=== PATIENT | female | born 1980 | race Caucasian/White ===

== ENCOUNTER 2021-01-14 19:18 | Inpatient (IN) | payer OTHER, MEDICAID, SELFPAY ==
[2021-01-14 19:24] VITALS: BP 120/80; PULSE 98; RESP 15; TEMP 36.8; O2SAT 100; BMI 24.5
[2021-01-14] MEDS: trazodone 50 mg Tablet PO (21:38)
[2021-01-14] MEDS: hyDROXYzine 25 mg Capsule 50 MG PO (21:38)
[2021-01-14 22:00] VITALS: BP 120/80; PULSE 98; RESP 15; TEMP 36.8; O2SAT 100
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
[2021-01-15 06:00] VITALS: BP 93/62; PULSE 73; RESP 18; TEMP 36.4; O2SAT 96
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
[2021-01-15 14:00] VITALS: BP 93/66; PULSE 93; RESP 18; TEMP 36.2; O2SAT 95
[2021-01-15] MEDS: ARIPiprazole 10 mg Tablet 5 MG PO (17:47)
[2021-01-15] MEDS: hyDROXYzine 25 mg Capsule 50 MG PO (20:14)
[2021-01-15] MEDS: trazodone 50 mg Tablet PO (20:14)
--- NOTE | 2021-01-15 20:15 | PC.NURSE ---
pt requesting sleep and anxiety meds. Trazodone 50mg po for sleep and Vistaril 50mg po given for anxiety.
[2021-01-15 20:41] VITALS: BP 121/77; PULSE 100; RESP 18; TEMP 36.6; O2SAT 97
--- NOTE | 2021-01-15 22:00 | PC.NURSE ---
pt resting quietly with both eyes closed.
[2021-01-16 06:00] VITALS: BP 121/77; PULSE 100; RESP 18; TEMP 36.6; O2SAT 97
[2021-01-16] MEDS: ARIPiprazole 10 mg Tablet 5 MG PO ×2 (08:58→15:47)
[2021-01-16 14:00] VITALS: BP 98/62; PULSE 106; RESP 20; TEMP 36.9; O2SAT 96
--- NOTE | 2021-01-16 14:35 | P.MISC_ITS ---
Documented by User: BENNETT Groves STDNT 01/16/21 15:11 Miscellaneous Note Purpose of Documentation: Report of Phone Calls Note: Patient gave contact information for multiple individuals in order to get a better understanding of the patient's history. The patient has an apparent history of forming attachments in relationships rapidly, inability to sustain a job for extended periods, and tendency to move homes frequently. The patient has had episodes of delusions and paranoia similar to the current symptoms but to a lesser degrees. Five years prior the ts-uqlwpl-ec-law Lorrie Mohan ([phone]) reports the patient had an episode of paranoia and ultra-fixation with free-range chickens. The patient was treated with an unknown medication in an out-patient setting at that time. The symptoms resolved and the patient quit taking the medication at some point afterwards. The patient's (Edil Fonseca [phone]) and the patient's case management rn (Angelita Farhat [phone]) report onset of paranoia as on or about 11/09/20, and Edil reports the paranoia has worsened over that time. Both Edil and Lorrie agree that this time her paranoia and delusions are worse than prior episodes. Edil reports the patient was taking an anti-depressant for several months during 2019 but quit taking the medication. 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 The patient had an unpaid ticket that resulted in the police arriving at her home which caused her to believe the [facility] was persecuting her for her disputed water/sewer line photo inspector bill. The patient then spent around 4 weeks moving from hotel to hotel in an attempt to evade her persecutors. All contacted parties express support for patient. Documented by User: Jg Ni MD 01/17/21 11:53
--- NOTE | 2021-01-16 18:56 | PM.NPN ---
Subjective NPU Subjective: Interval history: I met with the treatment team to discuss the patient's progress. We talked about the patient's professional healthcare representative and guardian. He was report of what the medical student learned from his phone calls to collateral contacts: Patient gave contact information for multiple individuals in order to get a better understanding of the patient's history. The patient has an apparent history of forming attachments in relationships rapidly, inability to sustain a job for extended periods, and tendency to move homes frequently. The patient has had episodes of delusions and paranoia similar to the current symptoms but to a lesser degrees. Five years prior the rj-bmkrqp-pe-law Lorrie Mohan ([phone]) reports the patient had an episode of paranoia and ultra-fixation with free-range chickens. The patient was treated with an unknown medication in an out-patient setting at that time. The symptoms resolved and the patient quit taking the medication at some point afterwards. The patient's (Edil Ojedaidi [phone]) and the patient's bilingual patient support caseworker (Angelita Farhat [phone]) report onset of paranoia as on or about 11/09/20, and Edil reports the paranoia has worsened over that time. Both Edil and Lorrei agree that this time her paranoia and delusions are worse than prior episodes. Edil reports the patient was taking an anti-depressant for several months during 2019 but quit taking the medication. 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 The patient had an unpaid ticket that resulted in the police arriving at her home which caused her to believe the [employer] [facility] was persecuting her for her disputed water/garment sewer hand bill. The patient then spent around 4 weeks moving from hotel to hotel in an attempt to evade her persecutors. All contacted parties express support for patient. The patient says that the Abilify has had a positive impact, slowing her thinking down a little bit. She has had no side effects from the medication, but she says she does not want it to slow her down too much. She says, I do not want to lose my spark. She says she slept fairly well without nightmares. She says her energy is high, but has she has had no racing thoughts. Her thinking is slower than it was yesterday. She denies suicidal and homicidal ideation. No auditory or visual hallucinations. Physically she is feeling well. Mental Status Exam MSE Comments: I met with the patient on the bench by the nurses station, along with the medical student. She was fairly calm, cooperative, interactive, and made good eye contact. No psychomotor agitation or retardation Speech was slower Alert, oriented to person, place, time, situation. Attention and concentration were intact to exam. Memory is adequate for the interview Mood is less euphoric. Affect is pleasant. Thought process is more clear and focused today. Thought content: No auditory or visual hallucinations, no suicidal ideation or homicidal ideation. She does continue have paranoid ideas of persecution. Insight, judgment, and impulse control show improvement, but are still mildly impaired. Vitals/I&O/Wt Last Vital Signs Temp 98.4 F 01/16/21 14:00 Pulse 106 H 01/16/21 14:00 Resp 20 H 01/16/21 14:00 BP 98/62 01/16/21 14:00 Pulse Ox 96 01/16/21 14:00 Weight last 48 hrs Weight 60.781 kg A&P Assessment and plan (1) Severe manic bipolar 1 disorder with psychotic behavior: Status: Acute Additional A&P Information This is a 40 year old female who is exhibited manic and paranoid behavior over the past few weeks, as well as giving away her belongings. RECOMMENDATION AND PLAN: 1. We will start the patient on Abilify 5 mg daily, for presumed mood disorder. We are starting at a low dose, because she reports that she has never taken psychiatric medication before. 2. Continue every 15 minute checks for safety. 3. Encourage individual, group and milieu therapies. 4. Encourage sober living treatment after discharge at the highest level of care to which he is willing to commit. Involuntary Hold Information 96 Hour Hold: 96 Hour Involuntary Admission: No Attestations NPU Medical Necessity Statement*: Psychiatric hospitalization is medically necessary to prevent access to lethal means, to reevaluate medication, and to coordinate a safe discharge. Likely length of stay is 3 to 5 days. Coding Level of Care Code Acute Mailing Machine Helper for Sandra Hoskins Diagnoses Severe manic bipolar 1 disorder with psychotic behavior F31.2
[2021-01-16] MEDS: hyDROXYzine 25 mg Capsule 50 MG PO (21:15)
[2021-01-16] MEDS: trazodone 50 mg Tablet PO (21:16)
[2021-01-16 22:00] VITALS: BP 106/69; PULSE 90; RESP 16; TEMP 36.8; O2SAT 97
[2021-01-17 06:00] VITALS: BP 106/70; PULSE 110; RESP 18; TEMP 36.6; O2SAT 95
[2021-01-17] MEDS: acetaminophen 325 mg Tablet 650 MG PO ×2 (09:26→21:49)
[2021-01-17] MEDS: ARIPiprazole 10 mg Tablet PO (09:27)
--- NOTE | 2021-01-17 12:43 | P.PN_ITS ---
Subjective NPU Subjective: Interval history: The patient reports sleeping well without interruption. She reported a lack of vivid dreams which is unusual for her. She denies any medication side effects and reports a decrease in the speed of her thoughts and speech. She has a positive outlook on her care and her life after discharge, but does state that she misses her children and their routines. <Greg Penaloza [facility] STDNT - Last Filed: 01/17/21 13:18> Mental Status Exam MSE Comments: I met with the patient in the day room and she appeared well fed, well groomed, and appearing her stated age. She was calm, cooperative, interactive, and made good eye contact. She answered questions in a clear and brief manner without straying into her delusions unless asked directly about her delusions. She was persistent in her delusions about the [employer] company defrauding her and her neighbors and the [place] government colluding with the police force to punish her for speaking out against the utility company. However, today she recognizes alternatives as reasonable as well. She feels she is improving, but recognizes she is not fully healthy yet. She enthusiastically supports continuing the current treatment plan. No psychomotor agitation or retardation Speech was no longer pressured and more easily interruptible. Alert, oriented to person, place, time, situation. Attention and concentration were intact to exam. Memory is adequate for the interview Mood is less euphoric. Affect is pleasant. Thought process is more clear and focused today. Thought content: No auditory or visual hallucinations, no suicidal ideation or homicidal ideation. She does continue have paranoid ideas of persecution. Insight, judgment, and impulse control show improvement, but are still mildly impaired. <Greg Penaloza MED STDNT - Last Filed: 01/17/21 13:18> Vitals/I&O/Wt Last Vital Signs Temp 97.9 F 01/17/21 06:00 Pulse 110 H 01/17/21 06:00 Resp 18 01/17/21 06:00 BP 106/70 01/17/21 06:00 Pulse Ox 95 01/17/21 06:00 <Greg Penlaoza [facility] STDNT - Last Filed: 01/17/21 13:18> A&P Assessment and plan (1) Severe manic bipolar 1 disorder with psychotic behavior: Status: Acute <Greg Penaloza [facility] STDNT - Last Filed: 01/17/21 13:18> Additional A&P Information This is a 40 year old female who is exhibited manic and paranoid behavior over the past few weeks, as well as giving away her belongings. RECOMMENDATION AND PLAN: 1. We will continue the patient on Abilify 10 mg daily, for presumed mood. The target dose is 15 mg daily. 2. Continue every 15 minute checks for safety. 3. Encourage individual, group and milieu therapies. 4. Encourage sober living treatment after discharge at the highest level of care to which he is willing to commit. <Greg Penaloza MED STDNT - Last Filed: 01/17/21 13:18> Involuntary Hold Information 96 Hour Hold: 96 Hour Involuntary Admission: No <Greg Penaloza BENNETT STDNT - Last Filed: 01/17/21 13:18> Attestations U Medical Necessity Statement*: n/a see attending <Greg PenalozaBENNETT STDNT - Last Filed: 01/17/21 13:18> Attending note: I have discussed the medical student's findings and agree with his observations. In addition the patient tells me that her mood has been calm, without depression or worry. She is not feeling so much like people are out to get her and her thinking is more organized. She says she slept well last night. And referring to her thinking, she says, it is a clean [place] up there. Again she is worried about the effects of the medication, saying, do not take my creativity away and all the things I love about myself. She says she is still doing self talk but not as rapidly as before. She denies side effects from the medications. On exam she is slower and more organized. While the patient is improved, from a clinical standpoint, her improvement has not stabilized. It is likely that she would again become manic if she would leave the hospital. Psychiatric hospitalization is medically necessary to prevent access to lethal means, to reevaluate medication, and to coordinate a safe discharge. Likely length of stay is 3 to 5 days. <Jg Ni MD - Last Filed: 01/17/21 18:03> Coding Level of Care Code Acute [facility] Administrator [facility] Diagnoses Severe manic bipolar 1 disorder with psychotic behavior F31.2
[2021-01-17 14:00] VITALS: BP 112/70; PULSE 75; RESP 16; TEMP 36.8; O2SAT 97
[2021-01-17] MEDS: trazodone 50 mg Tablet PO (21:20)
[2021-01-17] MEDS: hyDROXYzine 25 mg Capsule 50 MG PO (21:20)
[2021-01-17 22:00] VITALS: BP 109/65; PULSE 78; RESP 17; TEMP 36.6; O2SAT 98
[2021-01-18 06:00] VITALS: BP 98/52; PULSE 86; RESP 16; TEMP 36.8; O2SAT 99
[2021-01-18] MEDS: ARIPiprazole 10 mg Tablet PO (08:33)
--- NOTE | 2021-01-18 12:17 | PM.NPN ---
Subjective NPU Subjective: Interval history: I met with the patient on the bench by the nurses station. She says she is missing her children and wants to go home. I explained that we need to help her get her thinking more organized. She is agreeable to staying longer. She says her mood is sad. Her thinking is more rambling than yesterday. She easily launches into stories that continue on tangents without end. An example of the kind of statement she makes is, I feel my feelings are coming from my heart and not my brain. She also says, everything I have said is true, and has a resurgence of some of the paranoia she exhibited at the beginning of her stay. She denies suicidal and homicidal ideation. She denies auditory and visual hallucinations. She denies side effects from medication. Because her thinking is more rambling and she has more persecutory delusions, I recommended that we increase the Abilify to 15 mg. She agrees to this change. Mental Status Exam MSE Comments: The patient was fairly calm, cooperative, interactive, and made fair eye contact, but her thinking is more rambling and disorganized today. No psychomotor agitation or retardation Speech is somewhat pressured. Alert, oriented to person, place, time, situation. Attention and concentration were intact to exam. Memory is adequate for the interview Mood is less euphoric and more dysphoric. Affect is somewhat irritable. Thought process is more illogical, tangential and rambling today. Thought content: No auditory or visual hallucinations, no suicidal ideation or homicidal ideation. She does continue have paranoid ideas of persecution. Insight, judgment, and impulse control are not as good as yesterday. Vitals/I&O/Wt Last Vital Signs Temp 98.2 F 01/18/21 06:00 Pulse 86 01/18/21 06:00 Resp 16 01/18/21 06:00 BP 98/52 01/18/21 06:00 Pulse Ox 99 01/18/21 06:00 A&P Additional A&P Information This is a 40 year old female who is exhibited manic and paranoid behavior over the past few weeks, as well as giving away her belongings. RECOMMENDATION AND PLAN: 1. We will increase Abilify to 15 mg daily, for thought disorganization related to bipolar betty. The target dose is 15 mg daily, so we will hold here for a while to see if she responds. 2. Continue every 15 minute checks for safety. 3. Encourage individual, group and milieu therapies. 4. Encourage sober living treatment after discharge at the highest level of care to which he is willing to commit. Involuntary Hold Information 96 Hour Hold: 96 Hour Involuntary Admission: No Attestations NPU Medical Necessity Statement*: While the patient is improved, from a clinical standpoint, her improvement has not stabilized. It is likely that she would again become manic if she would leave the hospital. Psychiatric hospitalization is medically necessary to prevent access to lethal means, to reevaluate medication, and to coordinate a safe discharge. Likely length of stay is 3 to 5 days. Coding Level of Care Code Acute Icing And Glaze Maker for Sandra Hoskins
[2021-01-18] MEDS: ARIPiprazole 10 mg Tablet 5 MG PO (12:45)
[2021-01-18 14:00] VITALS: BP 89/50; PULSE 110; RESP 20; TEMP 36.8; O2SAT 95
[2021-01-18] MEDS: acetaminophen 325 mg Tablet 650 MG PO (14:28)
[2021-01-18 19:58] VITALS: BP 115/68; PULSE 120; RESP 18; TEMP 36.3; O2SAT 96
[2021-01-19] MEDS: acetaminophen 325 mg Tablet 650 MG PO ×3 (02:36→18:34)
[2021-01-19 06:00] VITALS: BP 115/68; PULSE 105; RESP 18; TEMP 36.3; O2SAT 96; BMI 24.5
[2021-01-19] MEDS: ARIPiprazole 10 mg Tablet 15 MG PO (08:34)
[2021-01-19] MEDS: nicotine 21 mg Patch 1 PATCH TRANSDERMA (12:04)
[2021-01-19 14:00] VITALS: BP 121/62; PULSE 85; RESP 14; TEMP 36.8; O2SAT 97
--- NOTE | 2021-01-19 17:17 | P.PN_ITS ---
Subjective NPU Subjective: Interval history: I met with the patient in her room with the door open. She reports being a little better. She says she is not is worried or upset about her leaving. Its not as devastating as before. We talked about how her emotions get very intense and how her emotional resources get depleted. She had trouble sleeping last night because another patient was yelling. She says she is in a great mood and her thinking is clear. She still has some ideas of being persecuted, but these are diminishing. She denies auditory and visual hallucinations. She denies suicidal and homicidal ideation. She denies medication side effects on the Abilify. Mental Status Exam MSE Comments: The patient was fairly calm, cooperative, interactive, made appropriate eye contact, her thinking is organized and without apparent delusions. No psychomotor agitation or retardation Speech is appropriately paced. Alert, oriented to person, place, time, situation. Attention and concentration were improved. Memory is adequate for the interview Mood is euphoric. Affect is euphoric. Thought process is clear and goal directed. Thought content: No auditory or visual hallucinations, no suicidal ideation or homicidal ideation. She has some persecutory ideas. Insight, judgment, and impulse control are better today. Vitals/I&O/Wt Last Vital Signs Temp 97.3 F L 01/19/21 06:00 Pulse 105 H 01/19/21 06:00 Resp 18 01/19/21 06:00 BP 115/68 01/19/21 06:00 Pulse Ox 96 01/19/21 06:00 Weight last 48 hrs Weight 60.781 kg A&P Assessment and plan (1) Severe manic bipolar 1 disorder with psychotic behavior: Status: Acute Additional A&P Information This is a 40 year old female who is exhibited manic and paranoid behavior over the past few weeks, as well as giving away her belongings. This is her first full-blown manic episode, though she had a milder episode about 5 years ago. RECOMMENDATION AND PLAN: 1. She is better on Abilify at 15 mg daily, which she is taking for mood stabilization and psychosis related to Bipolar Disorder. 2. Continue every 15 minute checks for safety. 3. Encourage individual, group and milieu therapies. 4. Encourage sober living treatment after discharge at the highest level of care to which she is willing to commit. Involuntary Hold Information 96 Hour Hold: 96 Hour Involuntary Admission: No Attestations NPU Medical Necessity Statement*: While the patient is improved, from a clinical standpoint, her improvement has not stabilized. It is likely that she would again become manic if she would leave the hospital. Psychiatric hospitalization is medically necessary to prevent access to lethal means, to reevaluate medication, and to coordinate a safe discharge. Likely length of stay is 2 to 4 days. Coding Level of Care Code Acute Ophthalmologist Retina Specialist for Sandra Hoskins Diagnoses Severe manic bipolar 1 disorder with psychotic behavior F31.2
[2021-01-19] MEDS: trazodone 50 mg Tablet PO (21:04)
[2021-01-19] MEDS: hyDROXYzine 25 mg Capsule 50 MG PO (21:04)
[2021-01-19 21:27] VITALS: BP 109/69; PULSE 83; RESP 18; TEMP 36.7; O2SAT 97
[2021-01-20 06:00] VITALS: BP 99/66; PULSE 78; RESP 18; TEMP 36.6; O2SAT 95
[2021-01-20] MEDS: ARIPiprazole 10 mg Tablet 15 MG PO (08:06)
--- NOTE | 2021-01-20 12:06 | PM.NPN ---
Subjective NPU Subjective: Interval history: I met with the patient in the common area. Her first comment is about missing her children. She is more focused today and reports nothing bothers me, in reference to how her medication makes her feel. She does not report medication side effects and says that she likes how it make her feel. She does not mention any of the delusions She denies suicidal and homicidal ideation. She denies auditory and visual hallucinations. She says she spoke with her yesterday and does not feel support from him. <Greg Penaloza MED STDNT - Last Filed: 01/20/21 14:49> Interval history: Agree with above. The patient reports increase in goal-directed activity. She cleaned her bathroom and made her bed 4 times. She says she has lots of energy with nowhere to put it. She denies medication side effects. <Jg Ni MD - Last Filed: 01/21/21 04:57> Mental Status Exam MSE Comments: The patient was fairly calm, cooperative, interactive, made appropriate eye contact, her thinking is organized and without apparent delusions. No psychomotor agitation or retardation Speech is appropriately paced. Alert, oriented to person, place, time, situation. Attention and concentration were intact to exam. Memory is adequate for the interview Mood is positive. Affect is pleasant. Thought process is clear and goal directed. Thought content: No auditory or visual hallucinations, no suicidal ideation or homicidal ideation, she does not display any paranoia nor mention any delusions. Her concentration has improved. Insight, judgment, and impulse control are better today. <Greg Penaloza MED STDNT - Last Filed: 01/20/21 14:49> Agree with above. <Jg Ni MD - Last Filed: 01/21/21 04:57> Vitals/I&O/Wt Last Vital Signs Temp 97.9 F 01/20/21 06:00 Pulse 78 01/20/21 06:00 Resp 18 01/20/21 06:00 BP 99/66 01/20/21 06:00 Pulse Ox 95 01/20/21 06:00 <Greg Penaloza MED STDNT - Last Filed: 01/20/21 14:49> Weight last 48 hrs Weight 60.781 kg <Greg Penaloza MED STDNT - Last Filed: 01/20/21 14:49> A&P Assessment and plan (1) Severe manic bipolar 1 disorder with psychotic behavior: Status: Acute <Greg Penaloza BENNETT STDNT - Last Filed: 01/20/21 14:49> Additional A&P Information RECOMMENDATION AND PLAN: 1. We will maintain Abilify at 15 mg daily. 2. Continue every 15 minute checks for safety. 3. Encourage individual, group and milieu therapies. 4. Encourage sober living treatment after discharge at the highest level of care to which she is willing to commit. <Greg PenalozaBENNETT STDNT - Last Filed: 01/20/21 14:49> This is a 40 year old female who is exhibited manic and paranoid behavior over the past few weeks, as well as giving away her belongings. This is her first full-blown manic episode, though she had a milder episode about 5 years ago. Agree with above. <Jg Ni MD - Last Filed: 01/21/21 04:57> Involuntary Hold Information 96 Hour Hold: 96 Hour Involuntary Admission: No <Gregari EpsteinBENNETT brennan STDNT - Last Filed: 01/20/21 14:49> Attestations NPU Medical Necessity Statement*: see attending note <BENNETT Groves STDNT - Last Filed: 01/20/21 14:49> While the patient is improved, from a clinical standpoint, her improvement has not stabilized. It is likely that she would again become manic if she would leave the hospital. Psychiatric hospitalization is medically necessary to prevent access to lethal means, to reevaluate medication, and to coordinate a safe discharge. Likely length of stay is 2 to 3 days. <Jg Ni MD - Last Filed: 01/21/21 04:57> Coding Level of Care Code Acute Direct Support Professional Home Health for [facility] Fwd Diagnoses Severe manic bipolar 1 disorder with psychotic behavior F31.2
[2021-01-20 13:49] VITALS: BP 100/67; PULSE 89; RESP 16; TEMP 36.9; O2SAT 97
[2021-01-20] MEDS: acetaminophen 325 mg Tablet 650 MG PO (17:10)
[2021-01-20 20:18] VITALS: BP 119/76; PULSE 82; RESP 15; TEMP 36.5; O2SAT 97
[2021-01-20] MEDS: hyDROXYzine 25 mg Capsule 50 MG PO (21:28)
[2021-01-20] MEDS: trazodone 50 mg Tablet PO (21:28)
[2021-01-21 06:00] VITALS: BP 93/60; PULSE 79; RESP 17; TEMP 36.8; O2SAT 94
[2021-01-21] MEDS: ARIPiprazole 10 mg Tablet 15 MG PO (08:47)
[2021-01-21] MEDS: polyethylene glycol 3350 Pkt 17 gm PO (08:49)
--- NOTE | 2021-01-21 08:54 | P.PN_ITS ---
Subjective NPU Subjective: Interval history: I met with the patient in the common area. She begins by stating she feels great. She says that she is able to let go of thoughts that previously caused her to be anxious. She says she misses her children and is looking forward to holding them. She likes how her medication makes her feels and reports no side effects related to the medication. She describes her thinking as clear and crisp. Mental Status Exam MSE Comments: The patient was calm, cooperative, interactive, made appropriate eye contact, her thinking is organized and without delusions. No psychomotor agitation or retardation Speech is appropriately paced. Alert, oriented to person, place, time, situation. Attention and concentration were intact to exam. Memory is adequate for the interview Mood is cheerful. Affect is pleasant. Thought process is clear and goal directed. Thought content: No auditory or visual hallucinations, no suicidal ideation or homicidal ideation, she does not display any paranoia nor mention any delusions. Insight, judgment, and impulse control are appropriate. Vitals/I&O/Wt Last Vital Signs Temp 98.2 F 01/21/21 06:00 Pulse 79 01/21/21 06:00 Resp 17 01/21/21 06:00 BP 93/60 01/21/21 06:00 Pulse Ox 94 01/21/21 06:00 A&P Additional A&P Information Additional A&P Information: This is a 40 year old female who is exhibited manic and paranoid behavior over the past few weeks, as well as giving away her belongings. This is her first full-blown manic episode, though she had a milder episode about 5 years ago. RECOMMENDATION AND PLAN: 1. We will maintain Abilify at 15 mg daily. 2. Continue every 15 minute checks for safety. 3. Encourage individual, group and milieu therapies. 4. Encourage sober living treatment after discharge at the highest level of care to which she is willing to commit. Involuntary Hold Information 96 Hour Hold: 96 Hour Involuntary Admission: No Attestations NPU Medical Necessity Statement*: . Coding Level of Care Code Acute Bow Repairer Custom for Sandra Hoskins
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
[2021-01-21] MEDS: ARIPiprazole Maintena 400 MG IM (11:24)
[2021-01-21 11:42] VITALS: BP 93/60; PULSE 79; RESP 17; TEMP 36.8; O2SAT 94
== END 2021-01-21 14:32 | disposition home or self-care (01) | DRG 885 ==
PROVIDERS: Admitting Provider Psychiatry & Neurology Child & Adolescent Psychiatry; Visit Provider Psychiatry & Neurology Child & Adolescent Psychiatry
DX: F31.2 Bipolar disorder, current episode manic severe with psychotic features (principal); F17.211 Nicotine dependence, cigarettes, in remission; Z62.898 Other specified problems related to upbringing
CPT/HCPCS: 96372